=== PATIENT | male | born 1980 | race Caucasian/White ===

== ENCOUNTER 2018-12-08 18:54 | Emergency (ER) | payer MEDICAID ==
[~2018-12-08] VITALS: Ht 175.3 cm; Wt 81.8 kg
[2018-12-08 18:58] VITALS: BP 133/78
[2018-12-08] MEDS ORDERED: GABA-533 PO (19:03)
[2018-12-08] MEDS ORDERED: LEVE500T53 PO (19:03)
[2018-12-08] MEDS ORDERED: HydrOXYzine PAMOATE 25 MG CAPSULE PO ONE (19:45)
== END 2018-12-08 19:58 | disposition home or self-care (01) ==
LOC: EMS 18:55
DX: F41.9 Anxiety disorder, unspecified (principal); G47.00 Insomnia, unspecified; F17.210 Nicotine dependence, cigarettes, uncomplicated; F11.10 Opioid abuse, uncomplicated; Z79.899 Other long term (current) drug therapy